=== PATIENT | male | born 1965 | race Caucasian/White ===

== ENCOUNTER 2018-12-11 16:07 | Emergency (ER) | payer OTHER ==
[~2018-12-11] VITALS: Ht 175.3 cm; Wt 90.7 kg
[2018-12-11] MEDS ORDERED: LEVOTHYROXINE25 MCG PO (16:28)
[2018-12-11] MEDS ORDERED: ZESTRIL2.5 MG PO (16:28)
[2018-12-11] MEDS ORDERED: SIMVASTATIN5 MG PO (16:28)
== END 2018-12-11 17:47 | disposition home or self-care (01) ==
LOC: ED 16:07
PROC: 0WQ2XZZ Repair Face, External Approach (ICD-10-PCS; principal; 2018-12-11)
DX: S01.81XA Laceration without foreign body of other part of head, initial encounter (principal); I10 Essential (primary) hypertension; Z79.899 Other long term (current) drug therapy; W18.30XA Fall on same level, unspecified, initial encounter; Y92.149 Unspecified place in prison as the place of occurrence of the external cause
CPT/HCPCS: 12013; 70110; 99283-25